=== PATIENT | female | born 2005 | race Hispanic/Latino ===

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

== ENCOUNTER 2023-05-19 14:00 | Outpatient (RCR) | payer MEDICAID, SELFPAY ==
--- NOTE | 2023-04-28 09:17 | HP.PTEVAL ---
Patient's Visit Information Visit Information Visit Information: NOE BRUSH is a 17 year old F referred to Physical Therapy by SOFYA Marsh with a diagnosis of R trochanteric bursitis. Date of Evaluation: 04/28/23 Physical Therapist: Christopher Castellanos, DPT, OCS, CSCS Visit Plan Frequency: 2x /Week Duration: 4-6 Weeks Plan: 2x/week for 3-6 weeks for ... 1. rollout and stretch R psoas and ITB and ensure stretching at home. 2. Strengthen ocre and hip stabs and progress to HEP/[employer] program as tolerated. If not improved, back to doctor after 3 weeks for MRI per doc note. May see chriopractor in meantime also Subjective Subjective: R hip problems for over two years. it is painful with daily activities anterior adn lateral and down leg at times to foot. 0-4/10 and worse with sleeping and driving, worse with activity. Gets numb sometimes but mostly painful. May have started in sports and had baby two years ago which made it worse. Sleeps on R side is worse. Wakes her up at night fairly often. 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 hobbies: workout here and there, arms at [employer] elliptical stair stepper whcih can bother her. Does legs also. Basic ADLs are getting done just hurt sometimes. Pain R hip: Pain Intensity (Out of 10): 0 Pain Intensity Range: 0 and 4 Objective Objective: Walks I without gait deviations. trasnfers are I without pain, no pain today in examination. Steps reciprocal without rail needed and no antalgia. LB AROM WFL and without pain, slightly tender centrally to PA pressure in L5 ITB and psoas slighty tight B but not bad and not painful. tender to the touch on ITB and R lumbar paraspinals slightly. Also min over Trochanter bursa, not over psaos asymmetrically. + R FADDIR, - TERE. - hip scour. - SI testing battery. Weakness in hip abd and ext rotators B and core is obvious with testing, not painful. AROM hips, knee and ankles WFL reflexes 2/3 B patella and achilles Sensation LE WNL to gross light touch. Balance/Special Test Scores Lower Extremity Functional Score: 78 Goals Goal 1:: work without increased pain consistently Goal Time Frame: 4-6 Weeks Goal 2:: I appropriate HEP for core, hip strength and stretching. Goal Time Frame: 4-6 Weeks Goal 3:: Pt feel 75% improved in overall pain and fucntion Goal Time Frame: 4-6 Weeks Rehabilitation Potential Physical Therapy Diagnosis: R hip pain, internal derangement vs soft tissue. Rehabilitation Potential: Questionable Anticipated Interventions Patient/Client Instruction: Educate patient on: Condition and Plan of Care For the Purpose of:: To decrease pain, To decrease swelling/inflammation and To increase tolerance to activity/condition/position Therapeutic Exercise to Include: Strength training, Flexibilty training, Passive ROM and Active ROM For the Purpose of:: To decrease pain, To improve nutrient delivery to tissue and To increase tolerance to activity/condition/position Text: Thank you for the opportunity to evaluate your patient. For Medicare and Medicare HMO plans, please review the plan of care and approve it. It will need to be FAXED BACK to us at [phone] for Medicare purposes. For Medicare only, by signing this I certify the plan of care. Please let me know if there are questions or concerns regarding this plan of care. Physician Signature: Date:
--- NOTE | 2023-06-05 15:30 | HP.PTREVAL ---
Re-Evaluation Intro: SOFYA Marsh, It has been my pleasure to treat NOE BRUSH over the last 6 visits for R trochanteric bursitis. Please see the progress note below for an update on the physical therapy plan of care! Subjective Subjective: I am getting better. Not as much pain anymore over the last week. pain to 2/10 in the past week. Was working a 12 hour shift. Work is main problem during the day as it is busier. No f.u scheduled with doctor. Doing HEP Doing the exercises at home. Hip strength seems ot be helping. Feels like she can continue exercise. Objective Objective/Function: Slight tenderness R psoas area and GT, otherwise is good. walks well and no real pain today, strength R hip 4/5 without pain rotations and abd and ext and flexion. ROM is WFL in the hips and negative ОЛЕГ CARRANZA today Plan Plan Plan: f/u 2-3 weeks for recheck and d./c if doing well or back to doctor if worseing, pt to call prior if worsens. Check TERE/EDGARIR Balance/Gait/Functional tests Balance/Special Test Scores Lower Extremity Functional Score: 79 Goals Goals Goal 1:: work without increased pain consistently Goal Time Frame: 4-6 Weeks Goal Progress: Progressing Goal 2:: I appropriate HEP for core, hip strength and stretching. Goal Time Frame: 4-6 Weeks Goal Progress: Goal Met Goal 3:: Pt feel 75% improved in overall pain and fucntion Goal Time Frame: 4-6 Weeks Goal Progress: 80% Anticipated Interventions Anticipated Interventions Patient/Client Instruction: Educate patient on: Condition and Plan of Care For the Purpose of:: To decrease pain, To decrease swelling/inflammation and To increase tolerance to activity/condition/position Therapeutic Exercise to Include: Strength training, Flexibilty training, Passive ROM and Active ROM For the Purpose of:: To decrease pain, To improve nutrient delivery to tissue and To increase tolerance to activity/condition/position Re-Evaluation Ending Re-evaluation ending: Please do not hesitate to contact me at [phone] by phone or if you have questions or concerns regarding this new plan of care! Sincerely, Christopher Castellanos, DPT, OCS, CSCS
--- NOTE | 2023-07-22 10:20 | HP.PT.NRP ---
Patient Information Patient Information: NOE BRUSH was seen in my office for initial evaluation on 04/28/23. The following Plan of Care was established for this patient: POC Established Initial Frequency: 2x /Week Initial Duration: 4-6 Weeks Anticipated Interventions Patient/Client Instruction: Educate patient on: Condition and Plan of Care For the Purpose of:: To decrease pain, To decrease swelling/inflammation and To increase tolerance to activity/condition/position Therapeutic Exercise to Include: Strength training, Flexibilty training, Passive ROM and Active ROM For the Purpose of:: To decrease pain, To improve nutrient delivery to tissue and To increase tolerance to activity/condition/position Last Seen Last Seen: This patient was last seen in our office 05/19/23. Pertinent comments regarding their Physical therapy will appear below: Pt seen 6 visits of POC and was 80% better. She was to f/u 2 weeks later but cancelled 2 times and did not reschedule. at this point, it has been over 6 weeks and I will discontinue due to nonattendance. At this point I will be discontinuing this patient from physical therapy. I would be happy to see this patient again in the future if found appropriate by the physician. Thank you! Christopher Castellanos, DPT, OCS, CSCS Balance/Gait/Functional tests Balance/Special Test Scores Lower Extremity Functional Score: 79
== END 2023-05-19 19:00 | disposition home or self-care (01) ==
LOC: PT 14:00
PROVIDERS: PCP Pediatrics; Referring Provider Physician Assistant; Visit Provider Physician Assistant
DX: M70.61 Trochanteric bursitis, right hip (principal); M53.3 Sacrococcygeal disorders, not elsewhere classified; M70.71 Other bursitis of hip, right hip
CPT/HCPCS: 97110; 97161; 97530

== ENCOUNTER 2023-06-26 21:34 | Emergency (ER) | payer MEDICAID, SELFPAY ==
[2023-06-26 21:35] VITALS: BP 130/87; PULSE 105; RESP 16; TEMP 36.6; O2SAT 97; BMI 24.9
[2023-06-26 21:36] VITALS: BP 130/87; PULSE 105; RESP 16; TEMP 36.6; O2SAT 97
--- NOTE | 2023-06-26 22:02 | EX.ED.DYSGE1 ---
HPI History of Present Illness Chief Complaint: Abscess Informant: patient and parent Narrative Narrative: Presents with a sore area in the left buttock. This is a healthy young lady. She is on no long-term medications. She states for the last 5 days she has had a sore on the left buttock. She states that just he is getting bigger and sore. No fevers or chills. No nausea vomiting. She is moving her bowels normally and it does not hurt. She states it is nowhere near the anus. No history of Crohn's or ulcerative colitis. No history of immune issues. They evidently were able to get a pretty fair amount of drainage out of it at home but it is just painful. Never had anything like this before. No history of abscesses. 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 PFSH PFSH Medical History no medical history Home Medications cephalexin 500 mg capsule 500 mg PO Q6 #40 CAPSULES 06/26/23 [Rx Last Taken Unknown] doxycycline monohydrate 100 mg capsule 100 mg PO BID #20 CAPSULES 06/26/23 [Rx Last Taken Unknown] oxycodone-acetaminophen 5 mg-325 mg tablet 1 tab PO Q6H PRN PRN Pain 3 days #12 TABLETS 06/26/23 [Rx Last Taken Unknown] Allergy/AdvReac Type Severity Reaction Status Date / Time No Known Allergies Allergy Verified 06/26/23 21:35 Surgical History no surgical history Social History Smoking Status: Never smoker alcohol intake: never substance use type: does not use ROS ROS ED Constitutional Constitutional ED: Denies chills or fever(s) Cardiovascular Cardiovascular: Denies palpitations Respiratory/Chest Respiratory/Chest: Denies dyspnea Gastrointestinal Gastrointestinal: Denies abdominal pain, constipation, diarrhea, melena, nausea or vomiting Genitourinary Genitourinary ED: Denies dysuria, hematuria or urinary frequency Integumentary Reports abscess Endocrine Endocrinology: Reports other Details: History of diabetes ; Denies polydipsia or polyuria Hematologic/Lymphatic Hematologic/Lymphatic: Denies easy bleeding, easy bruising or lymphadenopathy Allergic/Immunologic Allergic/Immunologic ED: Denies urticaria EXAM Physical Exam Narrative Exam Narrative: General: Patient is laying on her right side. She is not toxic. She does look like she is uncomfortable. HEENT shows no sign of trauma. Cardiorespiratory: Patient breathing is easy and unlabored. Saturations are normal at 97% on room air. Abdomen is nontender. Buttock: Her left buttock has erythema about 10 cm around. There is about 2-1/2 cm in the middle that is firm. But is not fluctuant. In the center of this is an open area that is already drained. There is a little clear fluid draining now. No active bleeding. Const Vital Signs: 06/26/23 21:35 06/26/23 21:36 Temperature 98 F 98 F Temperature Source Temporal Temporal Pulse Rate 105 H 105 H Respiratory Rate 16 16 Blood Pressure 130/87 H 130/87 H Blood Pressure Mean 101 101 Pulse Ox 97 97 MDM MDM MDM Narrative Medical decision making narrative: I did a bedside ultrasound of this area. Tissue looks normal. When I get over the central area from which it drained, there is a small pocket very superficial under the skin. It is not quite 1 cm deep. The pocket is only about 4 mm around. I have looked over the entire other area and there is no sign of other collection of fluid. I discussed options with the patient. I explained that we could still anesthetize this or use conscious sedation and see if we can get drainage or awake. But we can also place her on antibiotics and follow this for a couple days. I explained that these do get better with drainage but it looks like they have already gotten a large amount of drainage at home so I think we have less benefit at this time. At this time we agreed to initiate antibiotics and pain meds. She will use warm compresses. I will write her off work for a few days as I explained this will be sore. If the area fills up again swells, she develops nausea vomiting fevers or chills she should return. I do not think we need to do blood work or CAT scan at this time for further imaging. There is no indication this is anywhere near the rectum. Discharge Plan Triage Chief Complaint: Abscess ED Provider: Toni Packer Dx/Rx/DC Orders Clinical Impression: Left buttock abscess, Cellulitis of buttock, left Instructions: ED Abscess Antibiotic Treatment Only Prescriptions: New oxycodone-acetaminophen [oxycodone-acetaminophen] 5-325 mg tablet 1 tab PO Q6H PRN PRN (Reason: Pain) 3 Days Qty: 12 0RF doxycycline monohydrate 100 mg capsule 100 mg PO BID Qty: 20 0RF cephalexin [cephalexin] 500 mg capsule 500 mg PO Q6 Qty: 40 0RF Primary Care Provider: Elsie Russell Referrals: Elsie Russell MD [Primary Care Provider] - 2 Days for wound check Disposition Disposition: Home, Self Care
[2023-06-26] MEDS: Doxycycline 100 MG CAPSULE PO (22:19)
[2023-06-26] MEDS: oxyCODONE 5 MG Tablet PO (22:19)
[2023-06-26] MEDS: Cephalexin 250 MG Capsule 500 MG PO (22:19)
[2023-06-26] MEDS: Ondansetron ODT 4 MG Tablet PO (22:19)
== END 2023-06-26 22:28 | disposition home or self-care (01) ==
PROVIDERS: Emergency Provider Emergency Medicine; PCP Pediatrics; Visit Provider Emergency Medicine
DX: L02.31 Cutaneous abscess of buttock (principal); L03.317 Cellulitis of buttock
CPT/HCPCS: 99282